=== PATIENT | male | born 1960 | race Caucasian/White ===

== ENCOUNTER 2017-03-12 09:06 | Emergency (ER) | payer OTHER, SELFPAY ==
[2017-03-12 09:11] VITALS: BMI 23.6
[2017-03-12 09:12] VITALS: BP 137/71; PULSE 91; RESP 20; TEMP 97.4; O2SAT 98
[2017-03-12] MEDS ORDERED: Naproxen 500 MG TAB PO ONE (10:04)
[2017-03-12] MEDS: Naproxen 500 MG TAB PO ONE (10:08)
--- NOTE | 2017-03-12 10:54 | ED PDOC ---
HPI: Back Time Seen by Provider: 03/12/17 09:19 Chief Complaint (Nursing): Back Pain Chief Complaint (Provider): Back Pain History Per: Patient Additional Complaint(s): Germán is 56 year old female who presents to the emergency department complaining of lumbar pain started shortly after shoveling snow this morning 1 hour and 30 minutes ago. Pain is local and non-radiating. Denies any urinary problems, pain radiating down to lower extremity, fever or chills. No other medical problems at this time. PMD: [facility] Past Medical History Reviewed: Historical Data, Nursing Documentation, Vital Signs Vital Signs: Last Vital Signs Temp 97.4 F L 03/12/17 09:10 Pulse 91 H 03/12/17 09:10 Resp 20 03/12/17 09:10 BP 137/71 03/12/17 09:10 Pulse Ox 98 03/12/17 09:10 - Medical History PMH: HTN, Hypercholesterolemia Denies: Chronic Kidney Disease - Surgical History Surgical History: No Surg Hx - Family History Family History: States: No Known Family Hx - Home Medications Home Medications: Ambulatory Orders Medication Instructions Recorded Enalapril Maleate/Hydrochlor 1 tab PO DAILY 05/06/14 [Enalapril/Hctz 5 mg-12.5 mg] Pravastatin Sodium [Pravastatin] 40 mg PO HS 05/06/14 Drain Oil/[place]-3 Fatty Acids 1 cap PO DAILY 05/06/14 [Fish Oil 500 mg Softgel] Aspirin [Aspirin Low Dose] 81 mg PO DAILY #0 ect 05/07/14 Cyclobenzaprine [Cyclobenzaprine 10 mg PO TID #30 tab 03/12/17 HCl] Naproxen [Naprosyn] 500 mg PO BID PRN #20 tablet 03/12/17 - Allergies Allergies/Adverse Reactions: Allergies Allergy/AdvReac Type Severity Reaction Status Date / Time Penicillins Allergy SWELLING Verified 03/12/17 09:17 Review of Systems ROS Statement: Except As Marked, All Systems Reviewed And Found Negative Musculoskeletal: Positive for: Back Pain (Localized and non-radiating lumbar pain) Physical Exam - Reviewed Nursing Documentation Reviewed: Yes Vital Signs Reviewed: Yes - Physical Exam Appears: Positive for: No Acute Distress ((+): Able to stand to stand without difficulty) Gastrointestinal/Abdominal: Positive for: Soft. Negative for: Tenderness Back: Positive for: Other (Palpable lower lumbar tendenress). Negative for: L CVA Tenderness, R CVA Tenderness Neurologic/Psych: Positive for: Alert, Oriented - ECG O2 Sat by Pulse Oximetry: 98 (RA) Pulse Ox Interpretation: Normal Medical Decision Making Medical Decision Making: Time: 09:53 Impression: Acute Lumbar Sprain Plan: - Flexeril 10 mg PO - Naproxen 500 mg PO Scribe Attestation: Documented by Андрей Aguirre, acting as a scribe for Romina Mejia MD Provider Scribe Attestation: All medical record entries made by the Scribe were at my direction and personally dictated by me. I have reviewed the chart and agree that the record accurately reflects my personal performance of the history, physical exam, medical decision making, and the department course for this patient. I have also personally directed, reviewed, and agree with the discharge instructions and disposition. 11.30a - patient feeling better. will d/c on naproxen and flexeril Disposition - Clinical Impression Clinical Impression: Acute low back pain - Patient ED Disposition Is Patient to be Admitted: No Doctor Will See Patient In The: Office Counseled Patient/Family Regarding: Diagnosis, Need For Followup, Rx Given - Disposition Referrals: Renetta Oneill [Outside] Disposition: Routine/Home Disposition Time: 11:15 Condition: IMPROVED Prescriptions: Cyclobenzaprine [Cyclobenzaprine HCl] 10 mg PO TID #30 tab Naproxen [Naprosyn] 500 mg PO BID PRN #20 tablet PRN Reason: Pain, Moderate (4-7) Instructions: Acute Low Back Pain (ED), Back Exercises (ED) Forms: Renetta Palomares ([place]) - POA Present On Arrival: Falls Or Trauma
== END 2017-03-12 12:03 | disposition home or self-care (01) ==
LOC: H.ER 09:06
DX: M54.5 Low back pain (principal); I10 Essential (primary) hypertension; Z88.0 Allergy status to penicillin; Z79.82 Long term (current) use of aspirin